=== PATIENT | male | born 1955 | race Caucasian/White ===

== ENCOUNTER 2017-04-25 19:09 | Emergency (ER) | payer OTHER ==
[2017-04-25] MEDS ORDERED: DIPHTH,PERTUSS(ACELL),TET VAC 0.5 ML VIAL IM ONE ×2 (19:18→19:32)
[2017-04-25] MEDS ORDERED: ceFAZolin SODIUM 1 GM in DEXTROSE 5 % IN WATER 100 ML IV ONE ×2 (19:31)
--- NOTE | 2017-04-25 19:42 | ERNOTE ---
Upper Extremity HPI - General Extremities Pain Location: 5th finger: right Time Seen by Provider: 04/25/17 19:15 Source: patient, family Exam Limitations: no limitations - Immun/Allergies/Home Medications Immunizations: IMMUNIZATION HX Immunizations Up to Date No History of Influenza Vaccine No Hx Pneumococcal Vaccination No Allergies/Adverse Reactions: Allergies Allergy/AdvReac Type Severity Reaction Status Date / Time No Known Allergies Allergy Unverified 04/25/17 19:12 Home Medications: HOME MEDICATIONS Amox Tr/Potassium Clavulanate [Augmentin 875-125 Tablet] 875 mg PO Q12H #14 tab 04/25/17 [Last Taken Unknown] - History of Present Illness Narrative: Patient was working on a [employer] trailer when he lost his balance and started to fall. He grabbed a metal strip that eventually came off the trailer too, can' t say whether he sliced his finger with the metal or whether it hit his finger. he briefly his hit head when falling, denies any loss of consciousness 'I am fine'. His only concern is his finger Date (Duration): 04/25/17 Time (Timing): 18:45 Occurred: just prior to arrival Location of Incident: work Method of Injury: Reports: fell Reason for Fall: Reports: lost balance Loss of Consciousness: Reports: no loss of consciousness Prior Treament: Denies: recently seen, similar symptoms before Review of Systems - Review of Systems Constitutional: Absent: recent illness, fever ENT: Absent: nose congestion, sore throat Respiratory: Absent: shortness of breath Cardiology: Absent: chest pain Gastrointestinal/Abdominal: Absent: nausea, vomiting, abdominal pain Genitourinary: Present: no symptoms reported Musculoskeletal: Present: See HPI Neurological: Absent: headache, weakness, numbness - Patient's Past Medical History Patient History - Medical: No pertinent hx Patient History - Cardiac/Respiratory: No pertinent hx Patient History - Cancer: No Hx of Cancer Patient History - Surgical Procedures: No surgical history Patient History - Other: None - Social History Living Situations: home Abuse History: No History of abuse Psych History: No pertinent hx Smoking Status: Former smoker Alcohol Use: none Drug Use: none - Immunizations Immunizations Up to Date: No Hx Pneumococcal Vaccination: No History of Influenza Vaccine: No Physical Exam - Physical Exam General Appearance: Present: wd/wn, alert, no apparent distress, anxious Head Exam: Present: normal inspection, no evidence of injury Neck: Present: normal inspection, nontender Respiratory: Present: no respiratory distress, normal breath sounds, no accessory muscle use, chest nontender, lungs clear Cardiovascular/Chest: Present: regular rate, rhythm, no murmur, normal peripheral pulses Extremity Exam: Present: normal except - - right fifth finger tender over proximal phalanx, no deformity, laceration on palmar side just proximal to PIJ , able to flex finger distally and proxilmally Neurological Exam: Present: alert, oriented, normal mood/affect, no motor/ sensory deficits Skin Exam: Present: normal color, warm/dry ED Progress - Vital Signs Patient's Vital Signs:: I have reviewed the patient's vital signs. Vital Signs: Vital Signs 04/25/17 04/25/17 19:09 19:16 Temperature 36.7 C 36.7 C Pulse Rate 118 H 118 H Respiratory 18 18 Rate Blood Pressure 141/88 141/88 O2 Sat by Pulse 97 97 Oximetry - X-Ray X-Ray #1 X-Ray: hand - right fifth finger: proximal phalanx transverse fracture, minimal displacement Interpretation: Interp. by me - Progress/Reassessment Progress Note-Subjective: 04/25/17 19:29 discussed 04/25/17 19:[address] Jacinto, give IV Ancef, give one one week of po augmentin rx, aluminum splint call office on Friday for follow up 04/25/17 20:09 patient is from [place], [facility] Procedures Right 5th Digit Anesthesia: 2% Lidocaine, Digital Block Length of Repair/Wound (cm): 1.5 Wound's Depth/Shape: into subcutaneous Wound Explored: clean, no foreign body Wound Intervention: irrigated w/saline - by nurse Distal NVT: neuro/vasc intact Suture Size/Type: 4-0 Number of Sutures: 3 Layer Closure: Simple Wound Dressing: sterile dressing applied, splint applied - by nurse Complications: Pt cathy procedure well Departure Clinical Impression: Finger fracture, right Qualifiers: Encounter type: initial encounter Finger: little finger Fracture type: open Phalanx: proximal Fracture alignment: nondisplaced Qualified Code(s): S62.646B - Nondisplaced fracture of proximal phalanx of right little finger, initial encounter for open fracture - Departure Disposition: Home self-care Condition: Good Instructions: Finger Fracture, [id number] Additional Instructions: call the orthopedic clinic on Friday morning for a follow up appointment if you are still in town or call your orthopedic doctor when you get home [facility] Referrals: Qasim Jacinto MD [Staff Physician] - Prescriptions: Amox Tr/Potassium Clavulanate [Augmentin 875-125 Tablet] 875 mg PO Q12H #14 tab
[2017-04-25 22:19] VITALS: BP 131/85
== END 2017-04-25 21:15 | disposition home or self-care (01) ==
LOC: ER 19:09
PROC: 0JQJ0ZZ Repair Right Hand Subcutaneous Tissue and Fascia, Open Approach (ICD-10-PCS; principal; 2017-04-25)
DX: S62.646B Nondisplaced fracture of proximal phalanx of right little finger, initial encounter for open fracture (principal); X58.XXXA Exposure to other specified factors, initial encounter; Y93.89 Activity, other specified; Y92.9 Unspecified place or not applicable; Y99.0 Civilian activity done for income or pay; Z23 Encounter for immunization; S61.216A Laceration without foreign body of right little finger without damage to nail, initial encounter